=== PATIENT | female | born 1965 | race Two or more races ===

== ENCOUNTER 2021-11-21 01:24 | Emergency (ER) | payer OTHER ==
[~2021-11-21] VITALS: Ht 157.5 cm; Wt 54.4 kg
== END 2021-11-21 12:40 | disposition home or self-care (01) ==
LOC: ER 01:24
DX: K80.20 Calculus of gallbladder without cholecystitis without obstruction (principal); R10.13 Epigastric pain; R10.11 Right upper quadrant pain

== ENCOUNTER 2021-11-22 05:30 | Day surgery (SDC) | payer OTHER | END 2021-11-22 11:30 | disposition home or self-care (01) | LOC: CIR.AMB 05:30 | PROVIDERS: ATTEND Surgery | DX: K80.10 Calculus of gallbladder with chronic cholecystitis without obstruction (principal) ==